=== PATIENT | female | born 1980 | race Caucasian/White ===

== ENCOUNTER 2020-03-20 13:25 | Emergency (ER) | payer MEDICAID ==
[~2020-03-20] VITALS: Ht 170.2 cm; Wt 81.8 kg
[~2020-03-20 13:25] MED LIST: CYCL-1 PO; IBUP-1985 PO; LIPOZENE PO
[2020-03-20] MEDS ORDERED: normal saline 1000ML IV soln IVB ONE (14:00)
[2020-03-20] MEDS ORDERED: ondansetron/PF 4mg/2ml inj IV ONE (14:00)
[2020-03-20] MEDS ORDERED: morphine 2 MG/ML inj. syringe IV ONE (14:00)
[2020-03-20 14:32] LABS: URINE HCG NEGATIVE (NEG)
[2020-03-20 14:33] LABS: BASOPHILS % (AUTO) 0.3 % (0-1); EOSINOPHILS % (AUTO) 0.1 % (0-6); HEMATOCRIT 48.9 % (35.0-45.0); HEMOGLOBIN 16.7 g/dl (12.0-16.0); LYMPHOCYTES # (AUTO) 0.9 X10'3 (1.1-4.8); LYMPHOCYTES % (AUTO) 5.7 % (21-51); MEAN CORPUSCULAR HEMOGLOBIN 31.9 PG (27.0-31.0); MEAN CORPUSCULAR HGB CONC 34.2 g/dL (33.0-36.5); MEAN CORPUSCULAR VOLUME 93.2 FL (78-98); MEAN PLATELET VOLUME 8.7 FL (7.4-10.4); MONOCYTES # (AUTO) 0.5 X10'3 (0-0.9); MONOCYTES % (AUTO) 3.2 % (2-12); NEUTROPHILS # (AUTO) 14.4 X10'3 (1.8-7.7); NEUTROPHILS % (AUTO) 90.7 % (42-75); PLATELET COUNT 245 X10'3 (140-440); RED BLOOD COUNT 5.25 X10'6 (4.20-5.60); WHITE BLOOD COUNT 15.8 X10'3 (4.5-11.0)
[2020-03-20 14:33] LABS: CLARITY,URINE CLOUDY (Clear); COLOR,URINE YELLOW (Yellow); GLUCOSE, URINE NEGATIVE (Neg); KETONES,URINE NEGATIVE (Neg); LEUKOCYTE ESTERASE ,URINE TRACE (Neg); NITRITES, URINE NEGATIVE (Neg); OCCULT BLOOD,URINE LARGE (Neg); PROTEIN,URINE 100 mg/dl (Neg); UROBILINOGEN,URINE 0.2 E.U/dL (0.2-1.0)
[2020-03-20 14:35] LABS: UA COLLECTION TYPE CLN CATCH MIDSTREAM
[2020-03-20 14:40] LABS: MUCUS STRANDS FEW /LPF (Neg); SQUAMOUS EPITHELIAL CELL,UR MODERATE /LPF (FEW)
[2020-03-20 14:41] LABS: RBC,URINE TNTC /HPF (0-2)
[2020-03-20 14:42] LABS: ALANINE AMINOTRANSFERASE 38 U/L (12-78); ALBUMIN/GLOBULIN RATIO 1.1 (1.1-1.5); ALKALINE PHOSPHATASE 76 IU/L (46-116); ANION GAP 8 (8-16); ASPARTATE AMINO TRANSFERASE 26 U/L (10-37); BILIRUBIN,TOTAL 0.9 MG/DL (0.1-1.0); BLOOD UREA NITROGEN 21 MG/DL (7-18); BUN/CREATININE RATIO 22.1 (6.6-38.0); CALCIUM 9.1 MG/DL (8.5-10.1); CHLORIDE 107 MMOL/L (99-107); CREATININE 0.95 MG/DL (0.40-0.90); GLUCOSE 137 MG/DL (70-104); SODIUM 141 MMOL/L (135-145); TOTAL CARBON DIOXIDE 26.2 MMOL/L (24-32); TOTAL PROTEIN 7.8 G/DL (6.4-8.2); eGFR 65 ML/MIN
[2020-03-20 14:43] LABS: BACTERIA,URINE 2+ /HPF (Neg)
[2020-03-20] MEDS ORDERED: AMOX-422 PO (15:17)
[2020-03-20 15:42] VITALS: BP 109/61
== END 2020-03-20 15:45 | disposition home or self-care (01) ==
LOC: ER 13:26
DX: N39.0 Urinary tract infection, site not specified (principal); R10.31 Right lower quadrant pain; R11.0 Nausea; F12.90 Cannabis use, unspecified, uncomplicated; Z98.51 Tubal ligation status; Z79.899 Other long term (current) drug therapy
CPT/HCPCS: 36415; 74176; 80053; 81001; 81025; 85025; 87088; 96361; 96374; 96375; 99284; J2270; J2405; J7030

== ENCOUNTER → 2020-07-22 | Emergency (ER) | payer MEDICAID ==
[~2020-07-22] VITALS: Ht 172.7 cm; Wt 88.2 kg
[2020-07-22 16:44] VITALS: BP 121/72
== END | disposition home or self-care (01) ==
LOC: ER 16:42
DX: M25.461 Effusion, right knee (principal); M25.561 Pain in right knee; F12.90 Cannabis use, unspecified, uncomplicated; Z98.51 Tubal ligation status; Z79.899 Other long term (current) drug therapy
CPT/HCPCS: 29505; 73564; 99283

== ENCOUNTER 2023-11-12 10:01 | Emergency (ER) | payer MEDICAID, OTHER ==
[~2023-11-12] VITALS: Ht 170.2 cm; Wt 96.9 kg
[2023-11-12 10:05] VITALS: BP 124/85; PULSE 87; RESP 18; TEMP 98.6; O2SAT 96
[2023-11-12] MEDS ORDERED: AMOX-117 PO (10:09)
== END 2023-11-12 10:20 | disposition home or self-care (01) ==
LOC: ER 10:01
DX: J32.9 Chronic sinusitis, unspecified (principal); F12.90 Cannabis use, unspecified, uncomplicated; Z79.1 Long term (current) use of non-steroidal anti-inflammatories (NSAID); Z79.899 Other long term (current) drug therapy; Z98.51 Tubal ligation status
CPT/HCPCS: 99283